=== PATIENT | female | born 1955 | race Caucasian/White ===

== ENCOUNTER → 2019-04-11 09:50 | Outpatient (CLI) | payer MEDICARE, BC, SELFPAY ==
--- NOTE | 2019-04-11 09:54 | MM_ITS ---
PROCEDURE: MM DIG SCREENING MAMM BI W/CAD CLINICAL INDICATION: SCREENING There is no personal or family history of breast cancer COMPARISON: DMSB DIG MAMM-SCREEN NIGEL from 03/15/2013 DMSB DIG MAMM-SCREEN NIGEL from 03/31/2015 DMSB DIG MAMM-SCREEN NIGEL from 05/09/2016 TECHNIQUE: Standard CC and MLO images were obtained. R2 CAD reviewed. FINDINGS: Moderate diffuse and somewhat heterogenic fibroglandular densities are seen throughout both breasts primarily upper outer quadrants. There are stable benign-appearing nodular densities in each breast. There is no new or suspicious lesion in either breast and no suspicious microcalcifications. IMPRESSION: Moderate heterogenic breast density with no suspicious lesions seen BI-RAD Category: 2 Benign Finding(s) FOLLOW-UP: 1YR 1 Year Follow-up (A letter has been sent to the patient regarding results of the study.) Dictated by: Dr. Freddy Frost MD 04/12/2019 11:[address] Freddy Frost MD in [place] 04/12/2019 11:39
== END ==
PROVIDERS: PCP Family Medicine; Visit Provider Family Medicine
DX: Z12.31 Encounter for screening mammogram for malignant neoplasm of breast (principal)
CPT/HCPCS: 77067

== ENCOUNTER → 2020-04-03 14:58 | Outpatient (CLI) | payer MEDICARE, BC, SELFPAY ==
--- NOTE | 2020-04-03 15:15 | XR_ITS ---
PROCEDURE: XR KNEE LT 3V CLINICAL INDICATION: LT KNEE PAIN COMPARISON: No exams were available for comparison FINDINGS: No fracture or dislocation. No lytic or blastic change. There is normal mineralization. The joint spaces are well-preserved. No significant degenerative/arthritic changes. No erosive changes evident. Other findings:None. IMPRESSION: No acute findings. Dictated by: Rodriguez Vazquez MD 04/03/2020 17:36 Rodriguez Vazquez MD in [place] 04/03/2020 17:36
--- NOTE | 2020-04-03 15:15 | XR_ITS ---
PROCEDURE: XR HIP LT 2-3V W/PELVIS CLINICAL INDICATION: LT HIP PAIN COMPARISON: No exams were available for comparison FINDINGS: Decrease in the joint space superiorly suggesting minimal osteoarthritic change. Bony hypertrophy is present along the superior pubic ramus on the left and could be due to an old fracture. There are mild osteoarthritic changes of the SI joint on the left. IMPRESSION: Minimal osteoarthritis of the left hip osteoarthritic change of the left SI joint and possible old fracture of the left superior pubic ramus with an area of bony hypertrophy. Stability may be confirmed with follow-up Dictated by: Rodriguez Vazquez MD 04/03/2020 17:35 Rodriguez aVzquez MD in [place] 04/03/2020 17:35
== END ==
PROVIDERS: PCP Family Medicine; Referring Provider Orthopaedic Surgery Adult Reconstructive Orthopaedic Surgery; Visit Provider Family Medicine
DX: M25.552 Pain in left hip (principal); M25.562 Pain in left knee
CPT/HCPCS: 73502; 73562

== ENCOUNTER → 2020-04-13 09:00 | Outpatient (CLI) | payer MEDICARE, BC, SELFPAY ==
--- NOTE | 2020-04-13 09:05 | MM_ITS ---
PROCEDURE: MM DIG SCREENING MAMM BI W/CAD Digital Breast Tomosynthesis Included CLINICAL INDICATION: SCREENING There is no personal or family history of breast cancer. The patient is currently on estrogen. COMPARISON: MG DMSB DIG MAMM-SCREEN NIGEL from 03/31/2015 MG DMSB DIG MAMM-SCREEN NIGEL from 05/09/2016 MG MM DIG SCREENING MAMM BI W/CAD from 04/11/2019 TECHNIQUE: Standard CC and MLO images and 3D Tomosynthesis was obtained. R2 CAD reviewed. FINDINGS: Moderate diffuse fibroglandular densities are seen both breasts. Diaz images are most helpful in this type of breast parenchyma and there is a possible developing nodular mass inner quadrant right breast at the 3 o'clock position. Recommend the patient return for spot compression views and ultrasound of the lesion marked on the image for additional evaluation. There are no suspicious microcalcifications. IMPRESSION: Moderate heterogenic breast parenchyma with possible developing lesion right breast BI-RAD Category: 0 Need Additional Imaging Evaluation FOLLOW-UP: IMM Immediate Follow-up Recommended (A letter has been sent to the patient regarding results of the study.) Dictated by: Dr. Freddy Frost MD 04/15/2020 08:35 Dr. Ferddy Frost MD in [place] 04/15/2020 08:35
== END ==
PROVIDERS: PCP Family Medicine; Visit Provider Family Medicine
DX: Z12.31 Encounter for screening mammogram for malignant neoplasm of breast (principal)
CPT/HCPCS: 77063; 77067

== ENCOUNTER → 2020-04-21 13:29 | Outpatient (CLI) | payer MEDICARE, BC, SELFPAY ==
--- NOTE | 2020-04-21 13:33 | MM_ITS ---
PROCEDURE: MM DIG MAMM DX UNILAT RT CAD Digital Breast Tomosynthesis Included CLINICAL INDICATION: ABN MAMM The patient returns for additional views right breast for additional evaluation of asymmetric solitary nodule inner quadrant. It has been seen previously but shows a slight interval increase in size from the previous 2 exams. Spot compression views show the lesion to have relatively well-defined however ultrasound performed the same date shows a hypoechoic solid lesion at 3 o'clock position corresponding in size and location and showing somewhat lobulated borders with some subtle areas of acoustic shadowing. Though this is a possible fibroadenoma the slight lobulation of the borders and shadowing is worrisome and I would recommend patient have biopsy likely performed with ultrasound guidance. COMPARISON: MG DMSB DIG MAMM-SCREEN NIGEL from 03/15/2013 MG DMSB DIG MAMM-SCREEN NIGEL from 03/31/2015 MG DMSB DIG MAMM-SCREEN NIGEL from 05/09/2016 MG MM DIG SCREENING MAMM BI W/CAD from 04/11/2019 MG MM DIG SCREENING MAMM BI W/CAD from 04/13/2020 US US BREAST RT COMPLETE from 04/21/2020 TECHNIQUE: Standard CC and MLO images and 3D Tomosynthesis was obtained. R2 CAD reviewed. FINDINGS: Though this nodular density has been seen previously there has been slight interval increase in size since previous exams. Spot compression views show that the lesion does not press out but has relatively well-defined borders. However ultrasound performed the same date shows a solid hypoechoic lesion 3 o'clock position near the nipple finding in size and location to the density on mammogram. It shows somewhat lobulated borders with some subtle areas of acoustic shadowing and for these 2 reasons I would recommend the patient be scheduled for biopsy which can be performed with ultrasound guidance. IMPRESSION: Asymmetric solid mass 3 o'clock position right breast with somewhat suspicious ultrasound findings BI-RAD Category: 4 Suspicious Abnormality - Biopsy Considered FOLLOW-UP: BIO Biopsy Recommended (A letter has been sent to the patient regarding results of the study.) Dictated by: Dr. Freddy Frost MD 04/27/2020 09:29 Dr. Freddy Frost MD in [place] 04/27/2020 09:29
--- NOTE | 2020-04-21 13:34 | US_ITS ---
PROCEDURE: US BREAST RT COMPLETE CLINICAL INDICATION: ABN MAMM COMPARISON: No exams were available for comparison FINDINGS: There is a small well-defined hypoechoic oval lesion 12 o'clock position near the nipple measuring 0.6 by 0.7 x 0.4 cm and this likely is a complex cyst. However there is an oval solid hypoechoic lesion at the 3 o'clock position near the nipple corresponding in size and location to the nodular lesion on the recent mammogram which shows heterogenic echogenicity with subtle areas of acoustic shadowing and in view of these findings and the fact that it appears to be increased in size on the recent mammogram biopsy is recommended. A couple of additional benign-appearing cystic lesions at the 10 o'clock position. There are couple normal appearing nodes in the axilla. IMPRESSION: Somewhat suspicious solid hypoechoic lesion with areas of acoustic shadowing beneath 3 o'clock position near the nipple and biopsy is recommended probably with ultrasound guidance Dictated by: Dr. Freddy Frost MD 04/27/2020 09:33 Dr. Freddy Frost MD in [place] 04/27/2020 09:33
== END ==
PROVIDERS: PCP Family Medicine; Visit Provider Family Medicine
DX: R92.8 Other abnormal and inconclusive findings on diagnostic imaging of breast (principal)
CPT/HCPCS: 76641; 77061; 77065; G0279

== ENCOUNTER → 2020-05-06 09:19 | Outpatient (CLI) | payer MEDICARE, BC, SELFPAY ==
--- NOTE | 2020-05-06 | MM_ITS ---
PROCEDURE: US MAMMOTOME BX RT CLINICAL INDICATION: RT BREAST MASS COMPARISON: MG MM DIG SCREENING MAMM BI W/CAD from 04/11/2019 MG MM DIG SCREENING MAMM BI W/CAD from 04/13/2020 MG MM DIG MAMM DX UNILAT RT CAD from 04/21/2020 MG MM CLIP PLACEMENT RT from 05/06/2020 FINDINGS: Pre biopsy ultrasound confirms the presence of a 13 mm hypoechoic nodule in the right breast at 3 o'clock. Under aseptic conditions and time-out procedure following obtaining informed consent using sonographic guidance and local anesthesia with 1 percent buffered lidocaine and deeper anesthesia with lidocaine mixed with epinephrine, mammotome E needle was inserted and multiple mammotome biopsies were obtained. A clip was then placed. The patient tolerated the procedure well without evidence of immediate complication. Post biopsy mammogram: Post biopsy changes and clip is present along the medial aspect of the right breast at the area of previously described suspicious nodule. The clip is along the anterior aspect of the nodule. The nodule is not completely removed with the anterior portion appears to have been removed. Pathology: Benign breast with stromal fibrosis. Negative for carcinoma IMPRESSION: Uneventful ultrasound-guided mammotome biopsy of the right breast showing benign findings. Recommend six-month mammographic and sonographic follow-up to confirm stability Dictated by: Rodriguez Vazquez MD 05/11/2020 11:33 Rodriguez Vazquez MD in [place] 05/11/2020 11:33
== END ==
PROVIDERS: PCP Family Medicine; Visit Provider Family Medicine
DX: N63.12 Unspecified lump in the right breast, upper inner quadrant (principal)
CPT/HCPCS: 19083; 77065; 88305; C2618

== ENCOUNTER → 2020-08-06 10:49 | Outpatient (CLI) | payer MEDICARE, BC, SELFPAY ==
[2020-08-07 08:40] LABS: Covid-19 Nasal PCR Sendout P&C POSITIVE
== END ==
PROVIDERS: PCP Family Medicine; Visit Provider Family Medicine
DX: Z20.822 Contact with and (suspected) exposure to COVID-19 (principal); U07.1 COVID-19
CPT/HCPCS: U0004

== ENCOUNTER → 2020-10-30 14:34 | Outpatient (CLI) | payer MEDICARE, BC, SELFPAY ==
--- NOTE | 2020-10-30 14:37 | MM_ITS ---
PROCEDURE: MM DIG MAMM DX UNILAT RT CAD Digital Breast Tomosynthesis Included CLINICAL INDICATION: 6 MONTH F/U The COMPARISON: MG MM DIG SCREENING MAMM BI W/CAD from 04/13/2020 US BREAST RT COMPLETE from 04/21/2020 MG MM DIG MAMM DX UNILAT RT CAD from 04/21/2020 US MAMMOTOME BX RT from 05/06/2020 MG MM CLIP PLACEMENT RT from 05/06/2020 US BREAST RT COMPLETE from 10/30/2020 TECHNIQUE: Standard CC and MLO images and 3D Tomosynthesis was obtained. R2 CAD reviewed. FINDINGS: Average fibroglandular tissue. Previously noted nodular density in the medial aspect of the right breast is once again noted. The nodule may be slightly larger measuring approximately 16 mm in AP dimension on the mary view. On the MLO view the nodule appears larger along its anterior aspect. This could be related to post biopsy change. The pathology from the biopsy was benign breast with stromal fibrosis. Would have expected the diagnosis of fibroadenoma or hamartoma.. Biopsy clip is noted along the medial aspect of this nodule. No new abnormalities apparent stable benign-appearing nodule noted in the lateral aspect of the right breast at 3 mm. Right breast ultrasound: Previously noted mammographic nodule which is biopsied in the 3 o'clock region of the right breast is slightly smaller previously measuring 16 x 6 mm now measuring 9 x 3 mm. There is some discordance in mammographic and sonographic findings. IMPRESSION: Discordant mammographic and sonographic findings. Previously biopsied nodule in the 3 o'clock region is smaller however, the mammographic nodule is unchanged to slightly larger. Therefore, would suggest stereotactic directed biopsy of the nodule in the medial aspect of the right breast. BI-RAD Category: 4 Suspicious Abnormality - Biopsy Considered FOLLOW-UP: BIO Biopsy Recommended due to discordant findings on the mammogram and ultrasound. (A letter has been sent to the patient regarding results of the study.) Dictated by: Rodriguez Vazquez MD 11/06/2020 13:04 Rodriguez Vazquez MD in [place] 11/06/2020 13:04
== END ==
PROVIDERS: PCP Family Medicine; Visit Provider Family Medicine
DX: R92.8 Other abnormal and inconclusive findings on diagnostic imaging of breast (principal)
CPT/HCPCS: 76641; 77061; 77065; G0279

== ENCOUNTER → 2020-11-18 09:32 | Outpatient (CLI) | payer MEDICARE, BC, SELFPAY ==
--- NOTE | 2020-11-18 | MM_ITS ---
PROCEDURE: MM STEREOTACTIC LOC RT Digital Breast Tomosynthesis Included CLINICAL INDICATION: BREAST MASS Discordant mammographic and sonographic findings regarding nodule in the 3 o'clock region of the right breast COMPARISON: MG MM DIG MAMM DX UNILAT RT CAD from 04/21/2020 MG MM CLIP PLACEMENT RT from 05/06/2020 MG MM DIG MAMM DX UNILAT RT CAD from 10/30/2020 MG MM DIG MAMM DX UNILAT RT CAD from 11/18/2020 TECHNIQUE: Following obtaining informed consent and time-out procedure the patient was placed in the stereotactic unit and the nodular density was located using standard technique. Mild anesthesia was obtained with 1 mg of Xanax and 7.5 mg hydrocodone. Under aseptic conditions and local anesthesia with 1 percent buffered lidocaine and deeper anesthesia with lidocaine mixed with epinephrine, mammotome needle was inserted and multiple core biopsies were obtained. Results were felt to be adequate. A clip was placed but did not purchase and came out when the needle was removed. The patient tolerated the procedure well without evidence of immediate complication. FINDINGS: Post biopsy mammogram: The nodule of interest is smaller when compared to the previous pre biopsy exam. Pathology: Proliferative fibrocystic changes with stromal fibrosis in usual ductal hyperplasia. Negative for in situ and invasive malignancy. IMPRESSION: Successful and uneventful mammotome biopsy of the right breast showing benign findings. Recommend six-month mammographic and sonographic follow-up per routine post biopsy protocol Dictated by: Rodriguez Vazquez MD 11/26/2020 17:20 Rodriguez Vazquez MD in [place] 11/26/2020 17:20
== END ==
PROVIDERS: PCP Family Medicine; Visit Provider Family Medicine
DX: N63.15 Unspecified lump in the right breast, overlapping quadrants (principal)
CPT/HCPCS: 19081; 77061; 77065; 88305; G0279

== ENCOUNTER → 2021-05-21 13:22 | Outpatient (CLI) | payer MEDICARE, BC, SELFPAY ==
--- NOTE | 2021-05-21 13:27 | MM_ITS ---
PROCEDURE: MM DIG MAMM BI DX W/CAD Digital Breast Tomosynthesis Included Right breast ultrasound complete CLINICAL INDICATION: F/U ABN MAMM COMPARISON: MG DMSB DIG MAMM-SCREEN NIGEL from 05/09/2016 MG MM DIG SCREENING MAMM BI W/CAD from 04/11/2019 US US BREAST RT COMPLETE from 04/21/2020 US US MAMMOTOME BX RT from 05/06/2020 US US BREAST RT COMPLETE from 10/30/2020 MG MM DIG MAMM DX UNILAT RT CAD from 10/30/2020 MG MM DIG MAMM DX UNILAT RT CAD from 11/18/2020 MG MM STEREOTACTIC LOC RT from 11/18/2020 US US BREAST RT COMPLETE from 05/21/2021 TECHNIQUE: Standard CC and MLO images and 3D Tomosynthesis was obtained. R2 CAD reviewed. FINDINGS: The breasts are heterogeneously dense which may obscure small masses. Right breast: Biopsy clip is present in the medial aspect of the right breast. Scattered asymmetric densities are present as before. Nodular area in the medial aspect of the right breast overall not significantly changed. No malignant appearing mass or malignant-appearing microcalcification. Left breast: Scattered asymmetric fibroglandular elements. No discrete suspicious mass. No malignant-appearing microcalcification. Right breast ultrasound: 2 hypoechoic nodules are present at 12 o'clock near the nipple and may represent a small cyst at approximately 3 mm. In the 12 o'clock region there is a hypoechoic nodule with posterior acoustical shadowing wider than tall well-circumscribed measuring 9 by 5 mm. The at 3 o'clock near the nipple there is a 10 x 10 mm slightly hypoechoic nodule well-circumscribed wider than tall also with some posterior acoustical shadowing previously biopsied and not significantly changed.. Small cysts are present in the outer aspect of the right breast. A 7 mm cyst is present at 10 o'clock in the mid outer aspect of the right breast. IMPRESSION: 9 x 5 mm hypoechoic nodule at 12 o'clock. This does demonstrate some posterior acoustical shadowing. A cyst was present in this region previously. Recommend ultrasound-guided FNA/core biopsy for further evaluation. Stable hypoechoic nodule in the 3 o'clock region of the right breast previously biopsied showing benign findings BI-RAD Category: 4 Suspicious Abnormality-Biopsy Considered FOLLOW-UP: Ultrasound-guided FNA/core biopsy of the 12 o'clock nodule of the right breast (A letter has been sent to the patient regarding results of the study.) Trace Dictated by: Rodriguez Vazquez MD 05/31/2021 12:07 Rodriguez Vazquez MD in [place] 05/31/2021 12:07
== END ==
PROVIDERS: PCP Family Medicine; Visit Provider Family Medicine
DX: R92.8 Other abnormal and inconclusive findings on diagnostic imaging of breast (principal)
CPT/HCPCS: 76641; 77062; 77066; G0279

== ENCOUNTER → 2022-02-10 12:09 | Outpatient (CLI) | payer MEDICARE, BC, SELFPAY ==
--- NOTE | 2022-02-10 12:13 | MR_ITS ---
FINAL REPORT CLINICAL HISTORY: LOW BACK PAIN, no injury FINDINGS: Multiplanar MR imaging of the lumbar spine was performed without contrast. On the sagittal T2-weighted images, disc degeneration is seen at multiple levels. There is mild anterolisthesis of L4 on 5. There is mild leftward curvature. There is no evidence of fracture. The conus has an unremarkable appearance. L1-2: There is no significant canal stenosis or neural foraminal narrowing. L2-3: An annular bulge is present. Facet arthropathy and osteophytes are present. There is moderate right and mild left neural foraminal narrowing. L3-4: An annular bulge and facet arthropathy are present. There is mild bilateral neural foraminal narrowing. L4-5: An annular bulge and facet arthropathy are present. There is mild bilateral neural foraminal narrowing. L5-S1: An annular bulge and facet arthropathy are present. There is mild bilateral neural foraminal narrowing. IMPRESSION: Multilevel degenerative disc disease and spondylosis. Reviewed, Interpreted and Dictated by Orlando Gold III, MD Transcribed by Windy Sharp Authenticated and [facility]
== END ==
PROVIDERS: PCP Family Medicine; Visit Provider Orthopaedic Surgery Adult Reconstructive Orthopaedic Surgery
DX: M54.50 Low back pain, unspecified (principal)
CPT/HCPCS: 72148; 76376